=== PATIENT | female | born 1980 | race Caucasian/White ===

== ENCOUNTER 2021-07-17 21:35 | Emergency (ER) | payer BC, MEDICAID ==
[~2021-07-17 21:35] MED LIST: EPINEPHrine 1:10,000 1 MG/10 ML Syringe ONE; Sodium Bicarbonate 8.4% 50 MEQ/50 ML Syringe ONE
--- NOTE | 2021-07-18 02:46 | EDM.PDOC ---
ED HPI GENERAL MEDICAL PROBLEM - General Chief Complaint: CPR in Progress Stated Complaint: [facility] Time Seen by Provider: 07/17/21 21:52 Source of Information: Reports: EMS, Family History Limitations: Reports: Altered Mental Status - History of Present Illness INITIAL COMMENTS - FREE TEXT/NARRATIVE: The patient presents by [facility] for CPR in progress. The patient has been having some trouble breathing the past few days. She has been using a nebulizer at home. This evening she was having more trouble and starting vomiting and then went unresponsive. 911 was called. She was still breathing some and her try to help with the nebulizer. She then quit breathing and he tried some rescue breaths. Police got there and started CPR and put the AED on. No shock was advised. When EMS arrived the patient was pulseless and apneic. They continued CPR, put a Rubio airway in and got an IO. They gave her a few doses of epinephrine on the way and a sodium bicarb. She has a history of diabetes. She did not smoke. Her had COVID a few weeks ago. He was concerned she may have had it but she did not get tested. Onset: Sudden Duration: Minutes: Improves with: Reports: None Worsens with: Reports: None Associated Symptoms: Reports: Nausea/Vomiting Treatments VASCULAR ULTRASOUND TECHNOLOGIST: Reports: CPR, Intubation, IV/IO, Oxygen - Related Data Allergies Allergy/AdvReac Type Severity Reaction Status Date / Time No Known Allergies Allergy Verified 08/13/14 05:21 Home Meds: Home Meds Vit with Ca/FA/Iron [ Plus Iron] 1 each PO DAILY #100 tablet 08/15/14 [Rx] Acetaminophen/oxyCODONE [Percocet 325-5 MG] 2 tab PO Q4H PRN #45 tablet 02/21/16 [Rx] Docusate Sodium [Colace] 100 mg PO Q12H PRN #0 cap 02/21/16 [Rx] metFORMIN [Glucophage] 500 mg PO TIDMEALS tablet 02/21/16 [Rx] 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: , Spontaneous Endocrine/Metabolic History: Reports: Diabetes, Type II, Obesity/BMI 30+ Other Endocrine/Metabolic History: Gestational Diabetic - Past Surgical History Female Surgical History: Reports: Section ED ROS GENERAL - Review of Systems Review Of Systems: Unable To Obtain Reason Not Obtained: Patient unresponsive ED EXAM, CPR - Physical Exam Exam: See Below Limited By: Altered Mental Status General Appearance: Obtunded Eye Exam: Bilateral Eye: Other (Fixed and dilated) Ears: Normal External Exam Nose: Normal Inspection Throat/Mouth: Other (Rubio airway in place) Head: Atraumatic, Normocephalic Respiratory Chest: Other (Bilateral breath sounds with some rhonchi as she was ventilated) Cardiovascular: Pulse with Compression, CPR In Progress Course - Orders/Labs/Meds Labs: Laboratory Tests 07/17/21 Range/Units 21:40 POC Glucose > 580 H* (70-99) mg/dL - Re-Assessments/Exams Free Text/Narrative Re-Assessment/Exam: 07/18/21 02:48 The patient had a rubio airway in with good lung sounds. She had an IO in her left leg. That was not working when she arrived. My nurse put another IO in her right leg. CPR was continued. We gave her multiple doses of epinephrine and bicarb. The patient went into PEA. We were never able to get a pulse back. The patient dies at 21:49 this evening. I talked with her and brought him back. The vacuum cleaner repairer was contacted. Departure - Departure Time of Disposition: 02:55 Disposition: 20 Preliminary Cause of *Q: Cardiac Arrest Clinical Impression: Cardiac arrest, Respiratory arrest - Discharge Information Referrals: PCP,None [Primary Care Provider] -
== END 2021-07-17 23:10 | disposition expired ==
LOC: JD.ED 21:35
DX: I46.9 Cardiac arrest, cause unspecified (principal); E11.9 Type 2 diabetes mellitus without complications; E66.9 Obesity, unspecified; Z68.30 Body mass index [BMI] 30.0-30.9, adult; Z79.84 Long term (current) use of oral hypoglycemic drugs
CPT/HCPCS: 36680; 82947; 92950; 99285; J0171; 99284